=== PATIENT | male | born 1995 | race Caucasian/White ===

== ENCOUNTER 2024-09-29 11:42 | Emergency (ER) | payer BC ==
[~2024-09-29] VITALS: Ht 172.7 cm; Wt 54.4 kg
[2024-09-29 12:05] VITALS: TEMP 98.8
[2024-09-29] MEDS ORDERED: SILV50CR32 TP (12:40)
[2024-09-29 12:56] VITALS: BP 122/86; O2SAT 99
== END 2024-09-29 12:57 | disposition home or self-care (01) ==
LOC: ER 11:42
DX: T23.102A Burn of first degree of left hand, unspecified site, initial encounter (principal); Z60.2 Problems related to living alone; X08.8XXA Exposure to other specified smoke, fire and flames, initial encounter; Y93.89 Activity, other specified; Y92.89 Other specified places as the place of occurrence of the external cause; Y99.8 Other external cause status